=== PATIENT | female | born 1990 | race American Indian/Alaskan Native ===

== ENCOUNTER 2017-10-12 20:07 | Emergency (ER) | payer MEDICAID ==
[2017-10-12] MEDS ORDERED: REGLAN IV ONE (23:23)
[2017-10-12] MEDS ORDERED: NACL 0.9% 1000 ML 1,000 ML IV ONE (23:23)
[2017-10-12] MEDS ORDERED: ZOFRAN IV ONE (23:23)
[2017-10-12 23:44] LABS: Basophils % (Auto) 0.7 % (0.0-1.8); Eosinophils % (Auto) 8.7 % (0.0-4.3); Hematocrit 36.2 % (30.3-42.9); Hemoglobin 11.7 gm/dl (10.1-14.3); Mean Corpuscular HGB Conc 32 % (30-34); Mean Corpuscular Hemoglobin 27 pg (28-32); Mean Corpuscular Volume 85 fl (79-97); Platelet Count 124 K/mm3 (140-440); Red Blood Count 4.27 M/mm3 (3.65-5.03); Red Cell Distribution Width 14.5 % (13.2-15.2); White Blood Count 5.2 K/mm3 (4.5-11.0)
[2017-10-13 00:11] LABS: Alanine Aminotransferase 8 units/L (7-56); Albumin 4.3 g/dL (3.9-5); Albumin/Globulin Ratio 1.9 %; Alkaline Phosphatase 44 units/L (35-129); Anion Gap 20 mmol/L; BUN/Creatinine Ratio 19; Blood Urea Nitrogen 15 mg/dL (7-17); Calcium 9.1 mg/dL (8.4-10.2); Carbon Dioxide 20 mmol/L (22-30); Chloride 100.6 mmol/L (98-107); Glucose 91 mg/dL (65-100); Lipase 50 units/L (13-60); Potassium 3.5 mmol/L (3.6-5.0); Sodium 137 mmol/L (137-145); Total Protein 6.6 g/dL (6.3-8.2)
--- NOTE | 2017-10-13 00:21 | Emergency Department Report ---
HPI - General Chief Complaint: Dizziness Time Seen by Provider: 10/12/17 23:16 - HPI HPI: Room 26 The patient is a 26-year-old female presented with a chief complaint of dizziness and nausea and lower abdominal pain. 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 The patient states for the past 3 days she's had intermittent lightheadedness, dizziness and nausea whenever she attempts to eat greasy food. Patient denies vomiting or diarrhea. Patient states for 1 days she's had lower abdominal pain but denies fever or vaginal bleeding. Patient describes pain as sharp and intermittent in nature Location: [See above] Duration: 3 days Quality: Pain, lightheadedness, nausea Severity: Moderate Modifying factors: [see above] Context: [see above] Mode of transportation: [not driving] ED Past Medical Hx - Past Medical History Previous Medical History?: No - Surgical History Past Surgical History?: No - Family History Family history: no significant - Social History Smoking Status: Never Smoker Substance Use Type: None (denies illicit drug use), Alcohol (none 1 month) ED Review of Systems ROS: Stated complaint: DIZZINESS; 6WKS GEST Other details as noted in HPI Constitutional: denies: fever Gastrointestinal: abdominal pain, nausea. denies: vomiting Genitourinary: denies: abnormal menses Neurological: other (dizziness) Physical Exam - Physical Exam Vital Signs: Vital Signs 10/12/17 20:29 Temperature 98.9 F Pulse Rate 84 Respiratory 18 Rate Blood Pressure 96/59 O2 Sat by Pulse 100 Oximetry Physical Exam: GENERAL: The patient is well-developed well-nourished female lying on stretcher not appearing to be in acute distress. [] HEENT: Normocephalic. Atraumatic. Extraocular motions are intact. Patient has moist mucous membranes. NECK: Supple. Trachea midline CHEST/LUNGS: Clear to auscultation. There is no respiratory distress noted. HEART/CARDIOVASCULAR: Regular. There is no tachycardia. There is no gallop rub or murmur. ABDOMEN: Abdomen is soft, with trace discomfort to palpation in the suprapubic region. Patient has normal bowel sounds. There is no abdominal distention. SKIN: There is no rash. There is no edema. There is no diaphoresis. NEURO: The patient is awake, alert, and oriented. The patient is cooperative. The patient has normal speech MUSCULOSKELETAL: There is no evidence of acute injury. ED Course Vital Signs 10/12/17 20:29 Temperature 98.9 F Pulse Rate 84 Respiratory 18 Rate Blood Pressure 96/59 O2 Sat by Pulse 100 Oximetry ED Medical Decision Making - Lab Data Result diagrams: 10/12/17 23:27 10/12/17 23:27 Laboratory Tests 10/12/17 10/12/17 10/12/17 23:27 23:27 23:27 WBC 5.2 RBC 4.27 Hgb 11.7 Hct 36.2 MCV 85 MCH 27 L MCHC 32 RDW 14.5 Plt Count 124 L Lymph % (Auto) 27.7 [place] % (Auto) 6.9 Eos % (Auto) 8.7 H Baso % (Auto) 0.7 Lymph # 1.4 [place] # 0.4 Eos # 0.5 H Baso # 0.0 Seg Neutrophils % 56.0 Seg Neutrophils # 2.9 Sodium 137 Potassium 3.5 L Chloride 100.6 Carbon Dioxide 20 L Anion Gap 20 BUN 15 Creatinine 0.8 Estimated GFR > 60 BUN/Creatinine Ratio 19 Glucose 91 Calcium 9.1 Total Bilirubin 0.30 AST 14 ALT 8 Alkaline Phosphatase 44 Total Protein 6.6 Albumin 4.3 Albumin/Globulin Ratio 1.9 Lipase 50 HCG, Quant 12707 H Urine Color Urine Turbidity Urine pH Ur Specific [place] Urine Protein Urine Glucose (UA) Urine Ketones Urine Blood Urine Nitrite Urine Bilirubin Urine Urobilinogen Ur Leukocyte Esterase Urine WBC (Auto) Urine RBC (Auto) U Epithel Cells (Auto) Urine Mucus 10/13/17 00:12 WBC RBC Hgb Hct MCV MCH MCHC RDW Plt Count Lymph % (Auto) [place] % (Auto) Eos % (Auto) Baso % (Auto) Lymph # [place] # Eos # Baso # Seg Neutrophils % Seg Neutrophils # Sodium Potassium Chloride Carbon Dioxide Anion Gap BUN Creatinine Estimated GFR BUN/Creatinine Ratio Glucose Calcium Total Bilirubin AST ALT Alkaline Phosphatase Total Protein Albumin Albumin/Globulin Ratio Lipase HCG, Quant Urine Color Yellow Urine Turbidity Slightly-cloudy Urine pH 6.0 Ur Specific [place] 1.029 Urine Protein 30 mg/dl Urine Glucose (UA) Neg Urine Ketones Neg Urine Blood Neg Urine Nitrite Neg Urine Bilirubin Neg Urine Urobilinogen 4.0 Ur Leukocyte Esterase Neg Urine WBC (Auto) 1.0 Urine RBC (Auto) 3.0 U Epithel Cells (Auto) 23.0 H Urine Mucus 1+ - Radiology Data Radiology results: pending (pelvic ultrasound radiology report), image reviewed (pelvic ultrasound) - Differential Diagnosis , ectopic , UTI, Critical care attestation.: If time is entered above; I have spent that time in minutes in the direct care of this critically ill patient, excluding procedure time. ED Disposition Clinical Impression: Disposition: DC- LEFT AGAINST MED ADVICE Is pt being admited?: No Does the pt Need Aspirin: No Condition: Undetermined Referrals: PRIMARY CARE, [Primary Care Provider] - 3-5 Days
[2017-10-13 00:26] LABS: Bilirubin,Urine NEG (Negative); Blood,Urine NEG (Negative); Ketones,Urine NEG (Negative); Leukocyte Esterase,Urine NEG (Negative); Mucus,Urine 1+ /HPF; Nitrite,Urine NEG (Negative)
[2017-10-13 00:44] VITALS: BP 106/54
--- NOTE | 2017-10-13 03:12 | Ultrasound Report ---
FINAL REPORT PROCEDURE: US OB TRANSVAGINAL TECHNIQUE: Real-time transvaginal sonography of the uterus, placenta, amniotic fluid, adnexa, and fetus was performed with image documentation. Measurements were obtained to determine age/size. M-mode Doppler was used to document heartbeat. CPT 24602 HISTORY: with lower abdominal pain COMPARISON: No prior studies are available for comparison. FINDINGS: CRL: 3.5mm, which corresponds to a gestational age of: 6weeks, 0 days. Yolk Sac: Normal. Embryonic Cardiac Activity: 118 Gestational Sac: Normal. There is a subchorionic bleed measuring 9 millimeters. Right Ovary: Not seen. Left Ovary: Normal. Estimated delivery date: 06/07/18 Comment: Complete anatomic survey at 18-20 weeks suggested. IMPRESSION: 1. Single living intrauterine gestation at approximately 6 weeks 1 day 2. EDC by US 06/07/2018.
--- NOTE | 2017-10-13 03:12 | Ultrasound Report ---
FINAL REPORT PROCEDURE: US OB LESS THAN 14 WEEKS TECHNIQUE: Real-time transabdominal sonography of the uterus, placenta, amniotic fluid, adnexa, and fetus was performed with image documentation. Measurements were obtained to determine age/size. M-mode Doppler was used to document heartbeat. HISTORY: with lower abdominal pain COMPARISON: No prior studies are available for comparison. FINDINGS: CRL: 3.5mm, which corresponds to a gestational age of: 6weeks, 0 days. Yolk Sac: Normal. Embryonic Cardiac Activity: 118 Gestational Sac: Normal. There is a subchorionic bleed measuring 9 millimeters. Right Ovary: Not seen. Left Ovary: Normal. Estimated delivery date: 06/07/18 Comment: Complete anatomic survey at 18-20 weeks suggested. IMPRESSION: 1. Single living intrauterine gestation at approximately 6 weeks 1 day 2. EDC by US 06/07/2018.
== END 2017-10-13 01:54 | disposition left against medical advice (07) ==
LOC: ED 20:07
DX: O26.891 Other specified pregnancy related conditions, first trimester (principal); R42 Dizziness and giddiness; R11.0 Nausea; R10.30 Lower abdominal pain, unspecified; Z3A.01 Less than 8 weeks gestation of pregnancy
CPT/HCPCS: 36415; 76801; 76817; 80053; 81001; 83690; 84702; 85025

== ENCOUNTER 2017-12-01 22:03 | Emergency (ER) | payer MEDICAID ==
[2017-12-01 22:37] VITALS: BP 105/50
== END 2017-12-02 05:32 | disposition left against medical advice (07) ==
LOC: ED 22:03
DX: K08.89 Other specified disorders of teeth and supporting structures (principal); Z53.21 Procedure and treatment not carried out due to patient leaving prior to being seen by health care provider

== ENCOUNTER 2018-04-24 14:39 | Outpatient (CLI) | payer MEDICAID ==
[2018-04-24 15:02] VITALS: BP 100/53
[2018-04-24 16:15] LABS: Bacteria,Urine 1+ /HPF (Negative); Bilirubin,Urine NEG (Negative); Blood,Urine NEG (Negative); Color,Urine Yellow (Yellow); Mucus,Urine FEW /HPF; Protein,Urine <15 mg/dL mg/dL (Negative)
[2018-04-24] MEDS ORDERED: LACTATED RINGERS 1,000 ML IV ONE (17:00)
[2018-04-24] MEDS ORDERED: TYLENOL PO ONE (17:00)
== END 2018-04-24 17:30 | disposition home or self-care (01) ==
LOC: TRG 14:39
PROVIDERS: ATTEND Obstetrics & Gynecology
DX: O47.03 False labor before 37 completed weeks of gestation, third trimester (principal); Z3A.33 33 weeks gestation of pregnancy
CPT/HCPCS: 59025; 81001; 96360; J7120

== ENCOUNTER 2018-05-28 03:40 | Outpatient (CLI) | payer MEDICAID ==
--- NOTE | 2018-05-28 05:53 | Event Note ---
Date: 05/28/18 27 year old female presents to rule out labor. 2 previous sections. Patient reports she had painful contractions every 2 minutes at home. She states contractions have spaced out some but she still feels them. Patient denies vaginal bleeding or leaking of fluid. Patient reports active movement. Patient states she is scheduled to have repeat section this coming Monday. Patient is well appearing, alert, oriented. Abdomen is soft, nontender, gravid. Patient has contractions that are slightly irregular. No vaginal bleeding seen. Cervix is closed/80/-2. Will recheck cervix in an hour. Consulted with Dr. Garcia regarding this patient and he states if no cervical change in 1 hour may discharge patient to home.
[2018-05-28] MEDS ORDERED: LACTATED RINGERS 1,000 ML IV ONE (08:00)
[2018-05-28 09:37] LABS: Basophils % (Auto) 0.3 % (0.0-1.8); Eosinophils % (Auto) 0.4 % (0.0-4.3); Hemoglobin 9.1 gm/dl (10.1-14.3); Lymphocytes # (Auto) 0.9 K/mm3 (1.2-5.4); Lymphocytes % (Auto) 21.5 % (13.4-35.0); Mean Corpuscular HGB Conc 34 % (30-34); Mean Corpuscular Hemoglobin 28 pg (28-32); Mean Corpuscular Volume 82 fl (79-97); Monocytes # (Auto) 0.3 K/mm3 (0.0-0.8); Monocytes % (Auto) 8.1 % (0.0-7.3); Red Cell Distribution Width 15.5 % (13.2-15.2)
[2018-05-28 09:38] LABS: Platelet Count 86 K/mm3 (140-440)
[2018-05-28] MEDS ORDERED: NACL 0.9% 500 ML 500 ML IV NR (11:01)
[2018-05-28] MEDS ORDERED: LACTATED RINGERS 1,000 ML ONE (14:25)
[2018-05-28] MEDS ORDERED: PEPCID IV ONE (14:42)
[2018-05-28] MEDS ORDERED: BICITRA PO ONE (14:42)
[2018-05-28] MEDS ORDERED: REGLAN IV ONE (14:42)
--- NOTE | 2018-05-28 14:47 | History and Physical Report ---
History of Present Illness Date of examination: 05/28/18 Date of admission: 05/28/18 Chief complaint: SIUP at 39 weeks and 4 days gestation with contractions. History of present illness: Patient is a 27 year old , LMP 08/30/17, EDC 06/06/18 at 38 weeks and 5 days who presented to the triage area complaining of having contractions since last night. She denies any fluid leakage or bleeding. She reports good movement. She has 2 previous C/sections. Past History Past Surgical History: section MANAGER PROVIDER RELATIONS History: herpes Social history: no significant social history - Obstetrical History Expected Date of Delivery: 06/06/18 Actual Gestation: 38 Week(s) 5 Day(s) : 3 Para: 2 Number of Living Children: 2 Medications and Allergies Allergies Allergy/AdvReac Type Severity Reaction Status Date / Time No Known Allergies Allergy Verified 04/24/18 14:45 Home Medications Medication Instructions Recorded Confirmed Last Taken Type Vit-Fe Fumar-FA [ 1 tab PO QDAY 04/24/18 04/24/18 04/24/18 09: 00 History Vitamin] 1 Active Meds: Active Medications Citric Acid/Sodium Citrate (Bicitra) 30 ml PO ONCE ONE Stop: 05/28/18 14:43 Famotidine (Pepcid) 20 mg IV ONCE ONE Stop: 05/28/18 14:43 Sodium Chloride (Nacl 0.9% 500 Ml) 500 mls @ 0 mls/hr IV ONCE NR Stop: 05/28/18 23:59 Cefazolin Sodium (Ancef/Sterile Water 2 Gm/20 Ml) 2 gm in 20 mls @ 80 mls/hr IV PREOP NR; Protocol Lactated Ringer's (Lactated Ringers) 1,000 mls @ 2,250 mls/hr IV PREOP BORIS Stop: 05/29/18 15:27 Oxytocin/Sodium Chloride (Pitocin/Ns 20 Unit/1000ml Drip) 20 units in 1,000 mls @ 0 mls/hr IV TITR BORIS Metoclopramide HCl (Reglan) 10 mg IV ONCE ONE Stop: 05/28/18 14:43 - Vital Signs Vital signs: Vital Signs Pulse BP 75 108/66 05/28/18 09:13 05/28/18 09:13 Temp Pulse Resp BP Pulse Ox 97.7 F 85 18 109/58 05/28/18 09:57 05/28/18 14:47 05/28/18 09:57 05/28/18 14:47 Results Result Diagrams: 05/28/18 08:00 Abnormal lab results 05/28/18 Range/Units 08:00 WBC 4.2 L (4.5-11.0) K/mm3 RBC 3.30 L (3.65-5.03) M/mm3 Hgb 9.1 L (10.1-14.3) gm/dl Hct 27.0 L (30.3-42.9) % RDW 15.5 H (13.2-15.2) % Plt Count 86 L (140-440) K/mm3 [place] % (Auto) 8.1 H (0.0-7.3) % Lymph # 0.9 L (1.2-5.4) K/mm3 All other labs normal.
[2018-05-28] MEDS ORDERED: PITOCin/NS 20 UNIT/1000ML DRIP 20 UNITS/1,000 ML BAG IV SCH (15:00)
[2018-05-28] MEDS ORDERED: LACTATED RINGERS 1,000 ML IV SCH (15:00)
[2018-05-28] MEDS ORDERED: ANCEF/STERILE WATER 2 GM/20 ML 2 GM/20 ML SYRINGE IV NR (15:00)
[2018-05-28 15:33] VITALS: BP 85/46
== END 2018-05-28 16:16 | disposition home or self-care (01) ==
LOC: TRG 03:40 → LD 04:44 → TRG 16:16
PROVIDERS: ATTEND Obstetrics & Gynecology
DX: O62.9 Abnormality of forces of labor, unspecified (principal); Z3A.39 39 weeks gestation of pregnancy
CPT/HCPCS: 36415; 59025; 85025; 86592; 86850; 86900; 86901; 96360; 96361; J7040; J7120; P9035

== ENCOUNTER 2019-01-15 15:56 | Emergency (ER) | payer MEDICAID ==
--- NOTE | 2019-01-15 16:26 | Emergency Department Report ---
Chief Complaint: Extremity Injury, Upper Stated Complaint: HAND INJURY LEFT Time Seen by Provider: 01/15/19 16:24 - HPI History of Present Illness: This is a 28 y.o. female that presents with clearance after fall last night at work. Patient states she feel fine but [employer] request clearance before returning to work. Patient denies hitting head. - Exam Vital Signs: Vital Signs 01/15/19 16:23 Temperature 98 F Pulse Rate 72 Respiratory 16 Rate Blood Pressure 98/51 O2 Sat by Pulse 99 Oximetry MSE screening note: Focused history and physical exam performed. Due to findings the following was ordered: Fast track for further evaluation. ED Disposition for MSE Condition: Stable
--- NOTE | 2019-01-15 18:00 | Emergency Department Report ---
ED Recheck HPI - General Chief Complaint: Extremity Injury, Upper Stated Complaint: HAND INJURY LEFT Time Seen by Provider: 01/15/19 16:24 Source: patient Mode of arrival: Ambulatory Limitations: No Limitations - History of Present Illness Initial Comments: Patient is a 28-year-old -[place] female comes to the ER today at the request of her job. She apparently had bumped her left wrist and they wanted her to get medical clearance before returning her to work tonight. Patient has full range of motion she is neurovascularly intact. MD Complaint: other Returns Today for: other - Related Data Home Medications Medication Instructions Recorded Confirmed Last Taken Vit-Fe Fumar-FA [ 1 tab PO QDAY 04/24/18 06/02/18 04/24/18 09:00 Vitamin] 1 Previous Rx's Medication Instructions Recorded Last Taken Type Ibuprofen [Motrin 600 MG tab] 600 mg PO Q8H PRN #30 tablet 06/01/18 Unknown Rx Multivitamin with Iron 1 each PO DAILY #30 tablet 06/01/18 Unknown Rx [Multivitamins with Iron] oxyCODONE /ACETAMINOPHEN [Percocet 1 tab PO Q6HR PRN #30 tablet 06/01/18 Unknown Rx 5/325] Allergies Allergy/AdvReac Type Severity Reaction Status Date / Time No Known Allergies Allergy Verified 04/24/18 14:45 ED Review of Systems ROS: Stated complaint: HAND INJURY LEFT Other details as noted in HPI Comment: All other systems reviewed and negative Constitutional: denies: see HPI Eyes: denies: as per HPI ENT: denies: throat pain Respiratory: denies: cough Cardiovascular: denies: palpitations Endocrine: denies: intolerance to cold Gastrointestinal: denies: nausea Genitourinary: denies: urgency Musculoskeletal: denies: as per HPI Skin: denies: rash Neurological: denies: headache Psychiatric: denies: anxiety Hematological/Lymphatic: denies: easy bleeding ED Past Medical Hx - Past Medical History Previous Medical History?: No Hx Hypertension: No Hx Congestive Heart Failure: No Hx Diabetes: No Hx Deep Vein Thrombosis: No Hx Renal Disease: No Hx Sickle Cell Disease: No Hx Seizures: No Hx Asthma: No Hx COPD: No Hx HIV: No - Surgical History Past Surgical History?: Yes Additional Surgical History: x3 - Family History Family history: no significant - Social History Smoking Status: Never Smoker Substance Use Type: None - Medications Home Medications: Home Medications Medication Instructions Recorded Confirmed Last Taken Type Vit-Fe Fumar-FA [ 1 tab PO QDAY 04/24/18 06/02/18 04/24/18 09:00 History Vitamin] 1 Ibuprofen [Motrin 600 MG tab] 600 mg PO Q8H PRN #30 tablet 06/01/18 Unknown Rx Multivitamin with Iron 1 each PO DAILY #30 tablet 06/01/18 Unknown Rx [Multivitamins with Iron] oxyCODONE /ACETAMINOPHEN [Percocet 1 tab PO Q6HR PRN #30 tablet 06/01/18 Unknown Rx 5/325] ED Physical Exam - General Limitations: No Limitations General appearance: alert - Head Head exam: Present: atraumatic - Eye Eye exam: Present: normal appearance, PERRL - ENT ENT exam: Present: normal exam - Neck Neck exam: Present: normal inspection - Cardiovascular Cardiovascular Exam: Present: regular rate - GI/Abdominal GI/Abdominal exam: Present: soft - Expanded Upper Extremity Exam Left Elbow exam: Present: normal inspection Forearm Wrist exam: Present: normal inspection Hand Wrist exam: Present: normal inspection Neuro motor exam: Present: wrist extension intact, thumb opposition intact Vascular: Present: normal capillary refill, radial pulse, brachial pulse, ulnar pulse ED Course Vital Signs 01/15/19 16:23 Temperature 98 F Pulse Rate 72 Respiratory 16 Rate Blood Pressure 98/51 O2 Sat by Pulse 99 Oximetry ED Recheck MDM - Core Measures Measure Exclusions: not indicated - Medical Decision Making neurovasc intact pt has no complaints Critical care attestation.: If time is entered above; I have spent that time in minutes in the direct care of this critically ill patient, excluding procedure time. ED Disposition Clinical Impression: Wellness examination Disposition: DC-01 TO HOME OR SELFCARE Is pt being admited?: No Does the pt Need Aspirin: No Condition: Stable Forms: Work/School Release Form(ED) Time of Disposition: 18:00
[2019-01-15 18:08] VITALS: BP 102/68
== END 2019-01-15 18:06 | disposition home or self-care (01) ==
LOC: ED 15:56
DX: S69.92XA Unspecified injury of left wrist, hand and finger(s), initial encounter (principal); X58.XXXA Exposure to other specified factors, initial encounter; Y93.89 Activity, other specified; Y92.89 Other specified places as the place of occurrence of the external cause; Y99.8 Other external cause status
CPT/HCPCS: 99282

== ENCOUNTER 2019-03-18 04:08 | Emergency (ER) | payer MEDICAID ==
[2019-03-18 04:57] LABS: Basophils % (Auto) 0.3 % (0.0-1.8); Eosinophils # (Auto) 0.1 K/mm3 (0.0-0.4); Eosinophils % (Auto) 2.3 % (0.0-4.3); Hematocrit 33.3 % (30.3-42.9); Hemoglobin 11.1 gm/dl (10.1-14.3); Lymphocytes # (Auto) 0.8 K/mm3 (1.2-5.4); Lymphocytes % (Auto) 17.1 % (13.4-35.0); Mean Corpuscular HGB Conc 33 % (30-34); Mean Corpuscular Volume 83 fl (79-97); Monocytes # (Auto) 0.4 K/mm3 (0.0-0.8); Monocytes % (Auto) 9.3 % (0.0-7.3); Platelet Count 113 K/mm3 (140-440); Red Blood Count 3.99 M/mm3 (3.65-5.03); Red Cell Distribution Width 16.2 % (13.2-15.2)
[2019-03-18 05:20] LABS: Alanine Aminotransferase 22 units/L (7-56); Albumin 4.1 g/dL (3.9-5); BUN/Creatinine Ratio 18; Blood Urea Nitrogen 9 mg/dL (7-17); Calcium 9.4 mg/dL (8.4-10.2); Hemolysis Index 1
[2019-03-18 06:30] LABS: Bacteria,Urine 4+ /HPF (Negative); Bilirubin,Urine NEG (Negative); Blood,Urine SM (Negative); Color,Urine Yellow (Yellow); Mucus,Urine 1+ /HPF; Protein,Urine <15 mg/dL mg/dL (Negative)
== END 2019-03-18 05:30 | disposition left against medical advice (07) ==
LOC: ED 04:08
DX: R10.9 Unspecified abdominal pain (principal); Z53.21 Procedure and treatment not carried out due to patient leaving prior to being seen by health care provider
CPT/HCPCS: 36415; 80053; 81001; 84702; 85025

== ENCOUNTER 2019-10-01 09:07 | Inpatient (IN) | payer MEDICAID ==
[2019-10-01] MEDS ORDERED: LACTATED RINGERS 1,000 ML ONE (11:59)
[2019-10-01] MEDS ORDERED: FAMOTIDINE 20 MG/2 ML INJ IV SCH (12:21)
[2019-10-01] MEDS ORDERED: BICITRA ORAL LIQD 30ML PO SCH (12:21)
--- NOTE | 2019-10-01 12:27 | History and Physical Report ---
History of Present Illness Date of examination: 10/01/19 Date of admission: 10/01/19 09:07 Chief complaint: Here at term foe her 4th delivery and tubal sterilization. History of present illness: . TJ 10/07/2019. X3 previous cesareans. In good health otherwise. Past History Past Medical History: no pertinent history Past Surgical History: section - Obstetrical History Expected Date of Delivery: 10/07/19 Actual Gestation: 39 Week(s) 1 Day(s) : 4 Para: 3 Medications and Allergies Allergies Allergy/AdvReac Type Severity Reaction Status Date / Time No Known Allergies Allergy Verified 04/24/18 14:45 Home Medications Medication Instructions Recorded Confirmed Last Taken Type Vit-Fe Fumar-FA [ 1 tab PO QDAY 04/24/18 06/02/18 04/24/18 09:00 History Vitamin] 1 Ibuprofen [Motrin 600 MG tab] 600 mg PO Q8H PRN #30 tablet 06/01/18 Unknown Rx Multivitamin with Iron 1 each PO DAILY #30 tablet 06/01/18 Unknown Rx [Multivitamins with Iron] oxyCODONE /ACETAMINOPHEN [Percocet 1 tab PO Q6HR PRN #30 tablet 06/01/18 Unknown Rx 5/325] Active Meds: Active Medications Citric Acid/Sodium Citrate (Bicitra) 30 ml PO ONCE ONE Stop: 10/01/19 12:22 Famotidine (Pepcid) 20 mg IV ONCE ONE Stop: 10/01/19 12:22 Oxytocin/Sodium Chloride (Pitocin/Ns 20 Unit/1000ml Drip) 20 units in 1,000 mls @ 0 mls/hr IV TITR BORIS Lactated Ringer's (Lactated Ringers) 1,000 mls @ 2,250 mls/hr IV PREOP BORIS Stop: 10/02/19 13:27 Cefazolin Sodium (Ancef/Sterile Water 2 Gm/20 Ml) 2 gm in 20 mls @ 80 mls/hr IV PREOP NR; Protocol Metoclopramide HCl (Reglan) 10 mg IV ONCE ONE Stop: 10/01/19 12:22 Review of Systems All systems: negative - Vital Signs Vital signs: Vital Signs Pulse Pulse Ox 84 100 10/01/19 10:30 10/01/19 10:30 Temp Pulse Resp BP Pulse Ox 98.1 F 79 16 110/68 100 10/01/19 10:45 10/01/19 12:18 10/01/19 10:45 10/01/19 10:46 10/01/19 12:18 - Physical Exam Breasts: Positive: deferred Lungs: Positive: Normal air movement Abdomen: Positive: soft, distention. Negative: tenderness Uterus: Positive: normal size, enlarged, normal contour. Negative: tender - Obstetrical FHR: auscultation normal Results All other labs normal. Assessment and Plan - Patient Problems (1) Previous delivery affecting , antepartum Current Visit: Yes Status: Acute (2) Request for sterilization Current Visit: Yes Status: Acute Plan to address problem: The finality of salpingectomies re natural conception were fully discussed with patient as was the risk of failure and resultant ectopic . The risks of a 4th were also fully discussed. All of patient's questions were fully answered and she gave her consent to her procedures.
[2019-10-01 12:29] LABS: Basophils % (Auto) 0.3 % (0.0-1.8); Eosinophils % (Auto) 0.9 % (0.0-4.3); Hematocrit 25.7 % (30.3-42.9); Lymphocytes # (Auto) 1.2 K/mm3 (1.2-5.4); Lymphocytes % (Auto) 26.7 % (13.4-35.0); Mean Corpuscular HGB Conc 31 % (30-34); Mean Corpuscular Volume 77 fl (79-97); Monocytes # (Auto) 0.3 K/mm3 (0.0-0.8); Monocytes % (Auto) 7.1 % (0.0-7.3); Red Blood Count 3.33 M/mm3 (3.65-5.03); Red Cell Distribution Width 17.1 % (13.2-15.2)
[2019-10-01 12:30] LABS: Platelet Count 97 K/mm3 (140-440)
[2019-10-01] MEDS ORDERED: ceFAZolin/Water 2 GM/20 ML 2 GM/20 ML SYRINGE IV NR (13:00)
[2019-10-01] MEDS ORDERED: LACTATED RINGERS 1,000 ML IV SCH (13:00)
[2019-10-01] MEDS ORDERED: OXYTOCIN 20 UNIT/1000ML DRIP 20 UNITS/1,000 ML BAG IV SCH ×2 (13:00→16:00)
[2019-10-01] MEDS ORDERED: HYDROmorphone 1 MG/1 ML INJ IV PRN ×2 (13:01)
[2019-10-01] MEDS ORDERED: ONDANSETRON 4 MG/2 ML INJ IV PRN ×2 (13:01→15:27)
[2019-10-01] MEDS ORDERED: DEXMEDETOMIDINE 200 MCG/2 ML VIAL IV ONE (13:12)
[2019-10-01] MEDS ORDERED: METOCLOPRAMIDE 10 MG/2 ML INJ IV ONE (13:21)
[2019-10-01] MEDS ORDERED: SODIUM CHLORIDE 0.9% IRR 1,500 ML BOTTLE IR ONE (13:34)
[2019-10-01] MEDS ORDERED: WATER FOR IRRIG STERILE 1,500 ML BOTTLE IR ONE (13:34)
[2019-10-01] MEDS ORDERED: ACETAMINOPHEN 325 MG TAB PO PRN (15:27)
[2019-10-01] MEDS ORDERED: LANOLIN/ZINC/DIMETHICONE (LANSINOH) 7 GM TP PRN (15:27)
[2019-10-01] MEDS ORDERED: WITCH HAZEL/ GLYCERIN PAD TP PRN (15:27)
[2019-10-01] MEDS ORDERED: MORPHINE 4 MG/1 ML INJ IV PRN (15:27)
[2019-10-01] MEDS ORDERED: NALOXONE 0.4 MG/1 ML INJ IV PRN (15:27)
--- NOTE | 2019-10-01 15:40 | Operative Report ---
Operative Report Operative Report: Date of surgery: 10/01/2019 Preoperative diagnoses: Term , 3 previous sections, request for sterilization, probable peritoneal adhesions. Postoperative diagnoses: The same. No peritoneal adhesions were seen Operation: Lower segment transverse delivery. Bilateral salpingectomy Surgeon:Branden Joy MD Domestic Freight Forwarder: ANGEL Simpson Anesthesia: Spinal block Estimated blood loss: 400 mL Complications: None Findings: There was a live baby girl in cephalic presentation. Baby weighed 7 lbs. 13 oz. with Apgars of 8/9. No peritoneal adhesions were seen within the lower peritoneal cavity. Both ovaries and fallopian tubes were grossly normal. The uterus was unremarkable gravid structure. Procedure in detail: The patient was taken to the operating room and given a spinal block. Patient was placed in the straight supine position and a Han catheter was inserted. The patient was prepped in the abdomen. The drapes were placed. A timeout was done. With the go ahead from the hygiene assistant, a Pfannenstiel incision was made. This incision was carried across the subcutaneous layer to the fascia which was also divided transversely. The recti abdominis muscle flaps were stripped from the fascia using a combination of blunt and sharp dissections. The muscles were in the midline to gain access to the anterior parietal peritoneum which was divided after excluding any underlying viscera. The access to the peritoneal cavity was then widened by manual stretching. The bladder blade was applied. The utero vesicle peritoneal flap was divided transversely allowing the bladder to be displaced caudally. The uterine incision was placed in the lower segment transversely. The uterine incision was carried to the decidual layer. The uterine incision was extended on both sides using the bandage scissors. The amniotic sac was ruptured with clear fluid. The head was lifted out of the false maternal pelvis and delivered through the incision using fundal pressure. The airways were bulb suctioned beginning with the mouth. Continuing fundal pressure combined with traction on the mandibular processes of the jaw delivered the rest of the baby. The umbilical cord was double clamped and divided. The baby was carefully transferred to the pediatric team. The placenta was manually removed from the uterine cavity. The uterine cavity was explored and was empty of any placental remnants. The uterine incision was repaired in 2 layers with #1 Vicryl. The surgical line on the uterus was hemostatic. Each fallopian tube was excised by isolating pedicles of the mesosalpinx on each side and tying this off with a 2-0 Vicryl and then after excising the fallopian tube on the uterine cornua. The stump of the fallopian tube was also tied off with 2-0 Vicryl. There was no difficulty in controlling hemostasis in the left maxilla, requiring multiple interrupted stitches of #1 Vicryl to eventually controlled the bleeding. The fallopian tubes were sent FOR histopathological examination. Blood and clots were cleared from the peritoneal cavity. The anterior parietal peritoneum was repaired with #1 Vicryl. The fascia was repaired with #1 Vicryl. The subcutaneous layer was made hemostatic using the Bovie before the skin was closed subcuticularly with 4-0 Vicryl. There were no complications. The estimated blood loss was 400 mL. All sponges and instrument counts were correct. Patient was safely transferred to the recovery room.
--- NOTE | 2019-10-01 15:51 | Anesthesia Consultation ---
Anesthesia Consult and Med Hx Date of service: 10/01/19 - Airway Anesthetic Teeth Evaluation: Good, Poor ROM Head & Neck: Adequate Mental/Hyoid Distance: Adequate Mallampati Class: Class II Intubation Access Assessment: Probably Good - Pulmonary Exam CTA: Yes - Cardiac Exam Cardiac Exam: RRR - Pre-Operative Health Status ASA Pre-Surgery Classification: ASA2 Proposed Anesthetic Plan: Epidural - Pre-Anesthesia Comment Pre-Anesthesia Comments: PSH: C/SX3. NO ANESTHESIA COMPLICATIONS. - Pulmonary Hx Smoking: No Hx Asthma: No Hx Respiratory Symptoms: No SOB: No COPD: No Home Oxygen Therapy: No Hx Pneumonia: No Hx Sleep Apnea: No - Cardiovascular System Hx Hypertension: No Hx Coronary Artery Disease: No Hx Heart Attack/AMI: No Hx Angina: No Hx Percutaneous Transluminal Coronary Angioplasty (PTCA): No Hx Cardia Arrhythmia: No Hx Pacemaker: No Hx Internal Defibrillator: No Hx Valvular Heart Disease: No Hx Heart Murmur: No Hx Peripheral Vascular Disease: No - Central Nervous System Hx Neuromuscular Disorder: No Hx Seizures: No CVA: No Hx Back Pain: No Hx Psychiatric Problems: No - Gastrointestinal Hx Ulcer: No Hx Gastroesophageal Reflux Disease: No - Endocrine Hx Renal Disease: No Hx End Stage Renal Disease: No Hx Cirrhosis: No Hx Liver Disease: No Hx Insulin Dependent Diabetes: No Hx Non-Insulin Dependent Diabetes: No Hx Thyroid Disease: No Hx Hypothyroidism: No Hx Hyperthyroidism: No - Hematic Hx Anemia: No Hx Sickle Cell Disease: No - Other Systems Hx Alcohol Use: No Hx Substance Use: No Hx Cancer: No Hx Obesity: No
--- NOTE | 2019-10-01 15:52 | Anesthesia Day of Surgery ---
Anesthesia Day of Surgery - Day of Surgery Patient Examined: Yes Patient H&P Reviewed: Yes Patient is NPO: Yes Beta Blockers: No Cardiac Clearance: No Pulmonary Clearance: No Mario's Test: N/A
--- NOTE | 2019-10-01 15:52 | Post Anesthesia Evaluation ---
- Post Anesthesia Evaluation Patient Participated: Yes Airway Patent: Yes Stable Respiratory Function: Yes Nausea/Vomiting: No Temp > 96.8F: Yes Pain Manageable: Yes Adequeate Hydration: Yes Anesthesia Complications: No Block Receding Appropriately: Yes Patient on Ventilator: No
[2019-10-01] MEDS: KETOROLAC 30 MG/1 ML INJ IV PRN (19:38)
[2019-10-01] MEDS: ceFAZolin/NS 1 GM/50 ML 1 GM/50 ML BAG IV SCH (22:25)
[2019-10-02] MEDS: KETOROLAC 30 MG/1 ML INJ IV PRN ×2 (02:18→10:45)
[2019-10-02] MEDS: ceFAZolin/NS 1 GM/50 ML 1 GM/50 ML BAG IV SCH (05:38)
[2019-10-02 06:03] LABS: Hematocrit 20.6 % (30.3-42.9); Hemoglobin 6.6 gm/dl (10.1-14.3)
[2019-10-02] MEDS: PRENATAL VIT27-FE FUMARATE-FOLIC ACID VIT TAB PO SCH (09:18)
[2019-10-02] MEDS: IBUPROFEN 800 MG TAB PO PRN ×2 (09:18→22:44)
[2019-10-02] MEDS ORDERED: FERROUS SULFATE 325 MG TAB PO SCH (10:00)
[2019-10-02] MEDS ORDERED: IRON DEXTRAN COMPLEX 100 MG/2 ML INJ IM NR (13:30)
--- NOTE | 2019-10-02 14:06 | Progress Note ---
Assessment and Plan A: POD #1 Asymptomatic Anemia P: Follow Routine PostOp Orders Infed 100mg IM x 1 Dose FeSO4 325mg PO TID Subjective - Subjective Date of service: 10/02/19 Patient reports: appetite normal, voiding normally, pain well controlled, flatus, bowel movement, ambulating normally : doing well, bottle feeding Objective - Vital Signs Latest vital signs: Vital Signs Temp Pulse Resp BP BP Pulse Ox 10/02/19 08:37 99.2 F 63 20 103/63 98 10/01/19 23:20 99.0 F 91 H 18 103/61 100 10/01/19 18:20 97.3 F L 56 L 16 88/48 100 10/01/19 15:40 98.4 F 82 14 92 Intake and Output 10/01/19 10/02/19 10/02/19 22:59 06:59 14:59 Intake Total 1050 240 Output Total 200 1300 Balance 850 -1060 Intake: IV 1050 ANCEF/NS 1 GM/50 ML 1 gm 50 In 50 ml @ 100 mls/hr IV Q8H [facility] Rx#:[id number] Oral 240 Output: Urine 200 1300 Indwelling Catheter 1300 Uretheral (Han) 200 Other: Total, Intake Amount 240 Total, Output Amount 600 # Voids Indwelling Catheter 2 - Exam Breasts: Present: normal Cardiovascular: Present: Regular rate Lungs: Present: Clear to auscultation, Normal air movement Abdomen: Present: normal appearance, soft, normal bowel sounds Uterus: Present: normal, firm, fundal height below umbilicus Extremities: Present: normal Incision: Present: normal, dry, dressed - Labs Labs: Abnormal lab results 10/02/19 Range/Units 05:30 Hgb 6.6 L (10.1-14.3) gm/dl Hct 20.6 L (30.3-42.9) %
[2019-10-02] MEDS: FERROUS SULFATE 325 MG TAB PO SCH ×2 (15:11→22:43)
[2019-10-02] MEDS: oxyCODONE /ACETAMINOPHEN 5-325MG TAB PO PRN (15:11)
[2019-10-03] MEDS: oxyCODONE /ACETAMINOPHEN 5-325MG TAB PO PRN (07:49)
[2019-10-03] MEDS: FERROUS SULFATE 325 MG TAB PO SCH (07:49)
[2019-10-03] MEDS: PRENATAL VIT27-FE FUMARATE-FOLIC ACID VIT TAB PO SCH (10:49)
--- NOTE | 2019-10-03 11:54 | Progress Note ---
Assessment and Plan A: POD#2 s/p Repeat C/S with bilateral salpingectomy Pain well controlled Asymptomatic Anemia (Infed given 10/02) Stable P: Continue routine PP/PO orders Abdominal binder Anticipate discharge home today Script for Iron 325mg PO BID Follow-up in 1 week for incision check Subjective - Subjective Date of service: 10/03/19 Principal diagnosis: POD#2 s/p Repeat c/s with bilateral Salpingectomy Interval history: See H&P and operative note Patient reports: appetite normal, voiding normally, pain well controlled, flatus, ambulating normally, no bowel movement [place]: doing well, nursing well Objective - Vital Signs Latest vital signs: Vital Signs Temp Pulse Resp BP BP Pulse Ox 10/03/19 08:26 73 20 105/62 100 10/03/19 07:49 18 10/03/19 00:13 98.0 F 77 20 101/61 100 10/02/19 14:27 98.7 F 77 20 100/58 97 Intake and Output 10/02/19 10/03/19 10/03/19 23:59 07:59 15:59 Intake Total 240 240 Balance 240 240 Intake: Oral 240 240 Other: Total, Intake Amount 240 240 # Voids Void 1 1 - Exam Breasts: Present: normal, Cardiovascular: Present: Regular rate, Normal S1, Normal S2, No murmurs Lungs: Present: Clear to auscultation, Normal air movement Abdomen: Present: normal appearance, soft, tenderness (As expected post-op), normal bowel sounds. Absent: distention Vulva: both: normal Uterus: Present: firm, fundal height at umbilicus Extremities: Present: normal Deep Tendon Reflex Grade: Normal +2 Incision: Present: normal, dry, intact, dressed (LTI closed with SQ sutures and steri strips CDI, no draiange)
--- NOTE | 2019-10-03 11:57 | Discharge Summary ---
Providers - Providers Date of Admission: 10/01/19 09:07 Date of discharge: 10/03/19 Attending physician: ANUSHKA LIN MD Primary care physician: ANUSHKA LIN MD Hospitalization Reason for admission: IUP at term Delivery: Procedure: repeat low transverse, other (Bilateral salpingectomy) Procedure details: See H&P and operative note Incision: normal, dry, intact, dressed (LTI closed with SQ sutures and steri strips ) Other procedures: none complications: none Discharge diagnosis: IUP at term delivered baby: female Condition at discharge: Good Disposition: DC-01 TO HOME OR SELFCARE Plan - Discharge Medications Prescriptions: HYDROcodone/APAP 5-325 [[place] 5/325] 1 - 2 each PO Q4HR PRN #30 tablet PRN Reason: Pain - Provider Discharge Summary Activity: routine, no sex for 6 weeks, no heavy lifting 4 weeks, no strenuous exercise Diet: routine Instructions: routine Additional instructions: [] Smoking cessation referral if applicable(refer to patient education folder for contact #) [] Refer to [facility] Booklet Call your doctor immediately for: * Fever > 100.5 * Heavy vaginal bleeding ( >1 pad per hour) * Severe persistent headache * Shortness of breath * Reddened, hot, painful area to leg or breast * Drainage or odor from incision. * Keep incision clean and dry at all times and follow doctor's instructions regarding bathing/showering Ferrous sulfate 325mg PO BID for anemia Return to office in 1 week for incision check - Follow up plan Follow up: ANUSHKA LIN MD [Primary Care Provider] - 7 Days Forms: [facility] Discharge Summary
[2019-10-03 13:50] VITALS: BP 94/61
== END 2019-10-03 16:00 | disposition home or self-care (01) | DRG 766 ==
LOC: APU 09:07 → OB 18:32
PROVIDERS: ADMIT Obstetrics & Gynecology; ATTEND Obstetrics & Gynecology
PROC: 10D00Z1 Extraction of Products of Conception, Low, Open Approach (ICD-10-PCS; principal; 2019-10-01)
PROC: 0UB70ZZ Excision of Bilateral Fallopian Tubes, Open Approach (ICD-10-PCS; 2019-10-01)
DX: O34.211 Maternal care for low transverse scar from previous cesarean delivery (principal); Z3A.39 39 weeks gestation of pregnancy; Z37.0 Single live birth; O90.81 Anemia of the puerperium; Z30.2 Encounter for sterilization; D50.0 Iron deficiency anemia secondary to blood loss (chronic)
CPT/HCPCS: 36415; 85014; 85018; 85025; 86706; 86850; 86900; 86901; 88302; 96374; G0378; J0690; J1750; J1885; J2590; J2765; J3490; J7120